=== PATIENT | female | born 1965 | race Caucasian/White ===

== ENCOUNTER 2016-09-07 20:43 | Observation (INO) ==
[~2016-09-07 20:43] MED LIST: DUONEB (A & A) INH ONE
[2016-09-07 20:59] LABS: MANUAL DIFF NEEDED? NO
[2016-09-07] MEDS ORDERED: SOLU-MEDROL IV ONE (21:03)
[2016-09-07 21:07] LABS: BASO% 0.3 % (0.0-0.8); EOS% 3.4 % (0.0-10.0); HEMATOCRIT 50.1 % (37.0-47.0); HEMOGLOBIN 16.6 g/dL (12.0-16.0); IMM GRAN# 0.02 X1000 (0.0-0.04); IMM GRAN% 0.2 % (0.0-0.5); LYMPH# 1.73 X1000 (1.2-3.4); LYMPH% 14.8 % (20.5-51.1); MCH 28.6 PG (27-31); MCHC 33.1 g/dL (33-37); MCV 86.4 FL (81-99); MONO# 0.41 X1000 (0.11-0.59); MONO% 3.5 % (1.7-9.3); MPV 11.4 FL (7.4-10.4); NEUT% 77.8 % (42.2-75.2); PLT 244 X1000 (130-400)
[2016-09-07 21:20] LABS: INR 0.98; PROTIME 10.3 Seconds (9.2-11.7); PTT 28.6 Seconds (22.0-36.0)
[2016-09-07 21:23] LABS: AGAP 16; ALKALINE PHOSPHATASE 103 U/L (32-104); BUN 5 mg/dL (8-22); CALCIUM 10.2 mg/dL (8.8-10.2); CHLORIDE 94 mmol/L (98-107); CK PROFILE 101 U/L (24-173); COSMO 271; GOT 19 U/L (10-30); GPT 10 U/L (10-36); MAGNESIUM 1.9 mg/dL (1.5-2.7); POTASSIUM 3.9 mmol/L (3.5-5.1); SODIUM 137 mmol/L (136-145); TCO2 27 mmol/L (25-35); TOTAL BILIRUBIN 0.25 mg/dL (0.20-1.00); TOTAL PROTEIN 9.1 g/dL (6.3-8.3)
--- NOTE | 2016-09-07 21:43 | Diag Imaging Result Doc PS360 ---
EXAM: CHEST-2 VIEWS HISTORY: SOB TECHNIQUE: Two views COMPARISON: 04/23/2016 FINDINGS: The lungs are hyperexpanded. The heart is not enlarged. The vessels are not distended. There are no infiltrates. No pleural effusions. There are scattered granuloma. Mild scoliosis. IMPRESSION: Stable chest. Electronically signed by Marco Magana 09/07/2016 9:40 PM
[2016-09-07] MEDS ORDERED: NORCO-5 PO ONE (21:54)
[2016-09-07] MEDS ORDERED: DOXYCYCLINE PO ONE (21:54)
[2016-09-07] MEDS ORDERED: NICODERM PATCH TD ONE (22:16)
--- NOTE | 2016-09-07 22:20 | PROVIDER DOCUMENTATION ---
This chart was entered by Daisy Campbell Scribe, acting as scribe for Sunny Walker MD. HPI-Respiratory General - General Chief Complaint: Shortness of Breath Stated Complaint: COPD Time Seen by Provider: 09/07/16 20:45 Source: patient Allergies/Adverse Reactions: Patient Allergies Allergy/AdvReac Type Severity Reaction Status Date / Time ciprofloxacin Allergy Severe ANAPHYLAXIS Verified 09/07/16 20:55 codeine Allergy ITCHING Verified 09/07/16 20:55 sulfamethoxazole AdvReac Severe sick Verified 09/07/16 20:55 [From Septra] trimethoprim [From Septra] AdvReac Severe sick Verified 09/07/16 20:55 aspirin AdvReac ABDOMINAL Verified 09/07/16 20:55 PAIN dexamethasone [From Decadron] AdvReac Unknown Verified 09/07/16 20:55 dexamethasone sod phosphate * AdvReac Unknown Verified 09/07/16 20:55 [From Decadron] ketorolac tromethamine * AdvReac FLUSHING Verified 09/07/16 20:55 [From Toradol] Home Medications: Home Medication List Medication Instructions Recorded Confirmed Last Taken Type Albuterol Sulfate [Proair Hfa] 8.5 gm INH PRN PRN 09/07/16 09/07/16 09/07/16 History - History of Present Illness-Resp Nature of Presenting Problem: 50 Y/O F presents to ED with SOB. Pt states that she's oli having SOB, and breathing issues for a few weeks, states feeling like suffocating. Pt states increased coughing. Denies CP and states pain in her left lung. Pt has COPD for about 2 years and is still a smoker. Quality of Pain: reports: tightness Severity in ED: reports: moderate Onset/Duration: reports: other (few weeks) Timing: reports: still present Cough Quality/Degree: reports: severe Episode Frequency: frequent episodes Modifying Factors: improves with: oxygen Associated Symptoms: reports: cough, shortness of breath, wheezing. denies: chest pain/soreness, dizziness, earache, facial pain, fever/chills, flu-like symptoms, heart racing, hurts to breathe, hyperventilating, muscle/bodyaches, nasal congestion, sinus pain, short of breath, sore throat, sweaty Similar Symptoms Previously?: Yes Recently seen or treated by another doctor?: Yes Review of Systems - Adult - REVIEW OF SYSTEMS - ADULT Constitutional: denies: chills, fever Eyes: reports: no symptoms reported Ears, Nose, Mouth & Throat: reports: no symptoms reported Cardiovascular: denies: chest pain Respiratory: reports: cough, shortness of breath, wheezing Gastrointestinal: denies: abdominal pain, diarrhea, nausea, vomiting Genitourinary: reports: no symptoms reported Musculoskeletal: reports: no symptoms reported Integumentary: reports: no symptoms reported Neurological: reports: no symptoms reported Psychiatric: reports: no symptoms reported Endocrine: reports: no symptoms reported Hematologic/Lymphatic: reports: no symptoms reported Allergic/Immunologic: reports: no symptoms reported All Other Systems: Reviewed and Negative Past History - Adult - PAST MEDICAL HISTORY-ADULT Review of Records: reports: Old Records Reviewed, Nursing Assessment Review, Medications Reviewed, Social history reviewed & non-contributory. Major Childhood Illnesses: reports: denies history Cardiovascular: reports: HTN Respiratory: reports: bronchitis, COPD Gastrointestinal: reports: GERD Obstetrical/Gynecological: reports: denies history Genitourinary: reports: denies history Musculoskeletal: reports: arthritis, chronic pain, neck/back injury Neurological: reports: CVA, Seizures/Epilepsy, other (Brain Tumor - pituitary adenoma) Psychiatric: reports: bipolar, ptsd Endocrine/Immune: reports: denies history Other Conditions: reports: denies history - PRIOR SURGERIES/PROCEDURES Surgical/Procedure History: reports: other (Breast biopsy) - IMMUNIZATION STATUS Childhood Immunizations: See Nurse Assessment Flu Vaccine: See Nurse Assessment - FAMILY HISTORY Family History: reviewed, not pertinent - SOCIAL HISTORY Smoking: cigarettes, less than 1 pack/day Alcohol Use Frequency: never Living Situation: family Physical Exam-General - CONSTITUTIONAL General Appearance: alert, no apparent distress - EYES Eyes: pink conjunctivae - HEAD, EARS, NOSE, MOUTH & THROAT HENMT: normal ENT inspection, TMs normal, pharynx normal - NECK Neck: full range of motion, supple, normal inspection - RESPIRATORY Respiratory: wheezing (moderate) - CARDIOVASCULAR Cardiovascular: regular rate, rhythm, no edema - GASTROINTESTINAL (ABDOMEN) Abdominal Exam: non tender, soft - LYMPHATIC Lymphatic: no adenopathy - MUSCULOSKELETAL Back Exam: no CVA tenderness, no vertebral tenderness - SKIN Integumentary: normal turgor, warm/dry - NEUROLOGIC Neurologic: grossly normal - PSYCHIATRIC Psych/Mental Status: normal mood/affect, normal thought content, normal thought process, oriented x 3 Progress - PLAN OF CARE/RESULTS Progress/Plan/Lab Results: Vital Signs - 8 hr 09/07/16 20:54 09/07/16 22:11 Temperature 97.8 F Pulse Rate 88 99 H Respiratory Rate 16 22 Blood Pressure 187/104 130/73 O2 Sat by Pulse Oximetry 96 89 L Laboratory Results - last 24 hr 09/07/16 09/07/16 09/07/16 20:48 20:48 20:48 WBC 11.67 H RBC 5.80 H Hgb 16.6 H Hct 50.1 H MCV 86.4 MCH 28.6 MCHC 33.1 RDW Std Deviation 13.7 Plt Count 244 MPV 11.4 H Immature Gran % (Auto) 0.2 Neut % (Auto) 77.8 H Lymph % (Auto) 14.8 L [place] % (Auto) 3.5 Eos % (Auto) 3.4 Baso % (Auto) 0.3 Immature Gran # (Auto) 0.02 Neut # (Auto) 9.07 H Lymph # (Auto) 1.73 [place] # (Auto) 0.41 Eos # (Auto) 0.40 Baso # (Auto) 0.04 PT INR PTT (Actin FS) D-Dimer 0.68 H Sodium 137 Potassium 3.9 Chloride 94 L Carbon Dioxide 27 Anion Gap 16 BUN 5 L Creatinine 0.7 Estimated GFR/1.73 m2 > 60 BUN/Creatinine Ratio 7 Glucose 105 H Calculated Osmolality 271 Calcium 10.2 Magnesium 1.9 Total Bilirubin 0.25 AST 19 ALT 10 Alkaline Phosphatase 103 Creatine Kinase 101 Troponin T Bdv-B-Vhtaptazxmr Pept Total Protein 9.1 H Albumin 5.0 Globulin 4.1 Albumin/Globulin Ratio 1.2 09/07/16 09/07/16 09/07/16 20:48 20:48 20:48 WBC RBC Hgb Hct MCV MCH MCHC RDW Std Deviation Plt Count MPV Immature Gran % (Auto) Neut % (Auto) Lymph % (Auto) [place] % (Auto) Eos % (Auto) Baso % (Auto) Immature Gran # (Auto) Neut # (Auto) Lymph # (Auto) [place] # (Auto) Eos # (Auto) Baso # (Auto) PT 10.3 INR 0.98 PTT (Actin FS) 28.6 D-Dimer Sodium Potassium Chloride Carbon Dioxide Anion Gap BUN Creatinine Estimated GFR/1.73 m2 BUN/Creatinine Ratio Glucose Calculated Osmolality Calcium Magnesium Total Bilirubin AST ALT Alkaline Phosphatase Creatine Kinase Troponin T < 0.010 [id number] Pept 47 Total Protein Albumin Globulin Albumin/Globulin Ratio Orders Category Date Time Status Cardiac Monitoring DIRECTED Care 09/07/16 20:49 Active Oxygen Therapy- ED Nursing DIRECTED Care 09/07/16 20:39 Active Saline Loc DIRECTED Care 09/07/16 20:39 Active CHEST-2 VIEWS [RAD] Stat Exams 09/07/16 20:49 Completed CBC WITH ELECTRONIC DIFF [HEME] Stat Lab 09/07/16 20:48 Completed CK PROFILE [SP CHEM] Stat Lab 09/07/16 20:48 Completed COMPREHENSIVE METABOLIC PANEL [CHEM] Stat Lab 09/07/16 20:48 Completed D-DIMER [CHEM] Stat Lab 09/07/16 20:48 Completed MAGNESIUM [CHEM] Stat Lab 09/07/16 20:48 Completed PRO B-NATRIURETIC PEPTIDE Stat Lab 09/07/16 20:48 Completed PROTIME WITH INR [COAG] Stat Lab 09/07/16 20:48 Completed PTT [COAG] Stat Lab 09/07/16 20:48 Completed TROPONIN T Stat Lab 09/07/16 20:48 Completed Albuterol 2.5MG/Ipratrop 0.5MG [Duoneb (A & A)] Med 09/07/16 20:39 Discontinued 3 ml INH NOW ONE Doxycycline Med 09/07/16 21:54 Discontinued 100 mg PO NOW ONE Hydrocodone/APAP 5 mg/325 mg [[place]-5] Med 09/07/16 21:54 Discontinued 1 each PO NOW ONE Methylprednisolone Sod Succ [Solu-Medrol] Med 09/07/16 21:03 Discontinued 125 mg IV NOW ONE Nicotine Patch [Nicoderm Patch] Med 09/07/16 22:16 Discontinued 21 mg TD NOW ONE Aerosol Treatments Routine Oth 09/07/16 20:40 Completed Aerosol Treatments Stat Oth 09/07/16 20:39 Completed Aerosol Treatments Stat Oth 09/07/16 20:40 Completed Pulse Oximetry Stat Oth 09/07/16 20:39 Active EKG [EKG] Stat Ther 09/07/16 20:49 Ordered Result Diagrams: 09/07/16 20:48 09/07/16 20:48 - REASSESSMENT Reassessment #1 Time Reassessed: 22:18 (pt breaTHING EASIER NO NO WHEEZING CURRENTLY HOWEVER sAo2 IS 89% ON RA) Status: improving - EKG 1 Time of EKG reading by physician:: 20:44 EKG Read and Signed by:: Sunny Walker EKG Interpretation (*Must complete 3 of following elements*): Normal Rate: 89 Rhythm: NSR Comments: Normal ECG - CONSULTS/PCP/HOSPITALIST Notification #1 *Consult/PCP/Hospitalist*: Time Discussed: 22:16 Reason/Comments: Admit Consult Disposition: Admit (Admit Accepted) Departure - Departure Date of Disposition Decision: 09/07/16 Time of Disposition Decision: 22:19 DIAGNOSIS: COPD (chronic obstructive pulmonary disease) Qualifiers: COPD type: unspecified COPD Qualified Code(s): J44.9 - Chronic obstructive pulmonary disease, unspecified Disposition: ADMITTED INPATIENT 09 Certified Medical Emergency: Emergent Condition: Fair Referrals and Follow-Ups: Bentley Steele MD [Primary Care Provider] - - Critical Care Note This patient required my direct & personal management of CC.: No This chart was documented by the indicated scribe, (Daisy Campbell Scribe) and accurately reflects the services I performed and decisions made by me, Sunny Walker MD, as attested by the provider's signature.
[2016-09-07] MEDS ORDERED: DUONEB (A & A) INH PRN (22:22)
--- NOTE | 2016-09-07 23:18 | HISTORY AND PHYSICAL ---
CHIEF COMPLAINT: Cough, shortness of breath for 1 week. PRIMARY CARE PHYSICIAN: Dr. Steele. HISTORY OF PRESENTING ILLNESS: A 50-year-old female with a history of COPD, chronic low-back pain had presented to emergency department 1-week history of worsening shortness of breath. She states that she could not breathe and it seemed to be worsening. She was evaluated in ER, she was in somewhat distress. She was given nebulizer treatment and Solu-Medrol. She had improvement however due to her presenting symptoms, it was thought that she would need hospitalization for further management. At time of my examination she had denied any headache, fever, chills, chest pain, hemoptysis, but complained of cough and shortness of breath. PAST MEDICAL HISTORY: Includes COPD, chronic low-back pain, glaucoma. PAST SURGICAL HISTORY: Breast lumpectomies. ALLERGIES: Cipro, codeine, sulfamethoxazole, Bactrim, aspirin. CURRENT MEDICATIONS: Listed in the medication reconciliation sheet. SOCIAL HISTORY: 40+ pack years history of smoking. Denies any history of alcohol or illicit drug use. FAMILY HISTORY: No history of coronary disease. REVIEW OF SYSTEMS: Twelve point systems is as in HPI. Other systems negative. PHYSICAL EXAMINATION: GENERAL: Cooperative, friendly female. She is resting more comfortably now. VITAL SIGNS: Temperature 97.8 degrees, pulse 80, respirations 20, blood pressure is 130/70. HEENT: Atraumatic, normocephalic. Extraocular movements intact. PERRLA. NECK: No masses. CHEST: Rhonchi. CARDIOVASCULAR: Regular rate, rhythm. ABDOMEN: Soft, positive bowel sounds. EXTREMITIES: No edema. NEURO: She is awake, alert, oriented x3. : No bladder distention. SKIN: Warm. LABORATORIES AND STUDIES: WBCs 11.67, hemoglobin 16.6, hematocrit 50.1, platelets 244,000. Sodium 137, potassium 3.9, chloride 97, CO2 27, BUN is 5, creatinine 0.7, glucose is 105. ASSESSMENT: 50-year-old female with a history of chronic obstructive pulmonary disease and chronic low back pain had presented to emergency department with 1-week history of worsening shortness of breath. The patient will need hospitalization for further management. ASSESSMENT: 1. Chronic obstructive pulmonary disease exacerbation. 2. Ongoing tobacco abuse. 3. Chronic low back pain. PLAN: 1. We will admit patient medical floor with telemetry. 2. Continue with DuoNeb, IV Solu-Medrol, IV antibiotics. 3. We will consult social service to arrange home oxygen. 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 5. Give patient appropriate pain control for her back pain. 6. Put patient on DVT prophylaxis with SCD. 7. Continue follow and reassess. cc: Freddy Hobbs MD
[2016-09-07] MEDS ORDERED: ROCEPHIN 1 GM/NS 1 GM/50 ML IVPB IV SCH (23:47)
--- NOTE | 2016-09-08 05:42 | EKG Report ---
Test Performed on : 09/07/2016 8:44:29 PM Test Reason : No Order in [facility] at work Blood Pressure : / mmHG Vent. Rate : 089 BPM Atrial Rate : 089 BPM P-R Int : 126 ms QRS Dur : 080 ms QT Int : 372 ms P-R-T Axes : 080 074 069 degrees QTc Int : 452 ms Normal sinus rhythm. Normal ECG When compared with ECG of 23-AUG-2016 18:51, No significant change was found Unconfirmed Result
[2016-09-08] MEDS ORDERED: PNEUMOVAX 23 IM ONE (05:51)
[2016-09-08] MEDS: NORCO-5 PO PRN ×2 (05:59→12:23)
[2016-09-08] MEDS ORDERED: SOLU-MEDROL IV SCH ×2 (06:00→14:00)
[2016-09-08] MEDS ORDERED: PROTONIX IV SCH (06:30)
[2016-09-08] MEDS ORDERED: SODIUM CHLORIDE 0.9% INJ SCH (06:30)
[2016-09-08 06:44] LABS: ALLEN TEST YES; BE -0.5 mmoll (-3.0-3.0); BLOOD TYPE ARTERIAL; DRAW SITE R RADIAL; O2(CT) 19.7 mL/dL (15.0-23.0); PCO2(98.6) 45 mmHg (35-45); PO2(98.6) 67 mmHg (60-100); SAMPLE BLOOD; SAO2 96.1 % (95.0-100.0); THB 15.1 g/dL (11.5-17.4); pH(98.6) 7.36 (7.35-7.45)
[2016-09-08 06:45] LABS: MODALITY CANNULA
--- NOTE | 2016-09-08 07:06 | DISCHARGE SUMMARY ---
ADMISSION DATE: 09/07/2016 DISCHARGE DATE: HISTORY OF PRESENT ILLNESS: A 50-year-old, white, female patient admitted with chest congestion, cough, wheezing, shortness of breath not responding to her bronchodilator treatment. The patient evaluated in the ER, admitted for further care. HOSPITAL COURSE: The patient still had cough, chest, congestion wheezing. The patient does smoke. Chest soreness when she coughs. The patient does have chronic low back pain, on pain medication. The patient does have major depression. She was recently admitted to [facility]. Psychiatrist recommended ECT. The patient refused and she signed against medical advice. At times, epigastric discomfort and heartburn. No dysuria or hematuria. No diarrhea, blood, or mucus in the stool. The patient does have problem with depression. Her past medical history and medication noted. Admission history and physical reviewed. PHYSICAL EXAMINATION: Vital Signs: Noted. Neck: Supple. No JVD. Lungs: Bilateral expiratory wheezing. CVS: S1 and S2 heard. Abdomen: Soft, globular. Bowel sounds present. Extremities: No cyanosis, clubbing. No acute DVT. FUNERAL DIRECTOR/EMBALMER: Alert, awake. Able to move all 4 limbs. LAB DATA: Reviewed. CONSIDERATION: 1. Acute exacerbation of chronic obstructive pulmonary disease, most likely due to bronchitis. Chest x-ray did not reveal any pneumonia. 2. Gastritis and reflux disease. 3. Chronic low back pain. 4. Depression. PLAN: I am going to resume her Remeron. Decrease her steroid. Continue bronchodilator treatment. We will check blood gas. Encouraged her to quit smoking. Overall plan discussed with the patient. She is in agreement. cc: Bentley Steele MD
[2016-09-08] MEDS ORDERED: DOXYCYCLINE PO SCH (09:00)
[2016-09-08] MEDS ORDERED: DUONEB (A & A) INH SCH (10:00)
[2016-09-08 12:46] VITALS: BP 130/72
[2016-09-08] MEDS ORDERED: REMERON PO SCH (21:00)
== END 2016-09-08 15:01 | disposition left against medical advice (07) ==
LOC: ED 20:43 → 4N 23:33 → SUATTDRO 23:33 → INTOOBSV 23:33
PROVIDERS: ADMIT Internal Medicine; ATTEND Internal Medicine